=== PATIENT | female | born 1995 | race African-American/Black ===

== ENCOUNTER 2021-09-10 20:18 | Inpatient (IN) | payer MEDICARE, OTHER ==
[2021-09-10] MEDS ORDERED: hydrALAZINE 20 MG/ML VIAL SLOW IVP PRN ×3 (20:48→23:03)
[2021-09-10] MEDS ORDERED: Ibuprofen 800 MG TAB PO PRN (20:59)
[2021-09-10] MEDS ORDERED: Ondansetron PF 4 MG/2 ML Vial IVP PRN (20:59)
[2021-09-10] MEDS ORDERED: HYDROcodone/Acetaminophen 5/325 mg Tablet PO PRN (20:59)
[2021-09-10] MEDS ORDERED: Butorphanol Tartrate 1 MG/ML VIAL SLOW IVP PRN (20:59)
[2021-09-10] MEDS ORDERED: Promethazine HCl 25 MG/ML VIAL IM PRN (20:59)
[2021-09-10] MEDS ORDERED: Lidocaine 1% (PF) 30 ML VIAL SC PRN (20:59)
[2021-09-10] MEDS ORDERED: Lactated Ringer's 1,000 ML IV SCH ×2 (21:00)
[2021-09-10] MEDS ORDERED: NS w/ Oxytocin 30 units 500 ML IV SCH (21:00)
[2021-09-10 21:21] LABS: Fetal Membranes Rupture No Membranes Rupture (No Rupture)
[2021-09-10 22:43] VITALS: BMI 34.0
[2021-09-10] MEDS ORDERED: Calcium Gluc 4.6 MEQ/10 ML (100 MG/ML) SLOW IVP PRN (23:16)
[2021-09-10] MEDS ORDERED: Magnesium Sulfate 20 gm/500 ml 20 GM/500 ML BAG ONE (23:24)
[2021-09-10] MEDS ORDERED: Magnesium Sulfate 20 gm/500 ml 20 GM/500 ML BAG IVPB SCH (23:30)
[2021-09-10] MEDS ORDERED: Magnesium Sulfate 20 GM/WATER 500 ML BAG IVPB SCH (23:30)
[2021-09-10 23:31] LABS: Hemoglobin 9.7 g/dL (12.0-15.5); Mean Corpuscular HGB CONC 31.4 g/dL (32.0-36.0); Mean Corpuscular Volume 63.6 fl (81.6-98.3); Platelet Count 281 10x3/uL (150-450); RBC Distribution Width 14.8 % (11.5-14.5); Red Blood Cell (RBC) Count 4.86 10x6/uL (3.90-5.03); White Blood Cell (WBC) Count 7.5 10x3/uL (3.5-10.5)
[2021-09-10] MEDS: NS w/ Oxytocin 30 units 500 ML IV SCH (23:34)
[2021-09-10 23:53] LABS: Hep B Surf Ag Non-Reactive S/CO (NonReactive)
[2021-09-10 23:54] LABS: Syphilis Antibody Nonreactive (Nonreactive); Syphilis Antibody Index 0.08 S/CO (<1.00 Non-Reactive)
[2021-09-10 23:56] LABS: HBSAg Index 0.18 S/CO (0-0.99)
[2021-09-10] MEDS ORDERED: Fentanyl 2 mcg/Bup 0.1% Cadd 100 ML ONE (23:56)
[2021-09-11] MEDS ORDERED: Lactated Ringer's 500 ML IV PRN ×2 (00:02)
[2021-09-11] MEDS ORDERED: Promethazine HCl 25 MG/ML VIAL IM PRN ×2 (00:02→07:30)
[2021-09-11] MEDS ORDERED: diphenhydrAMINE 50 MG/ML VIAL IVP PRN (00:02)
[2021-09-11] MEDS ORDERED: Naloxone HCl 0.4 mg/ml Vial IVP PRN ×2 (00:02)
[2021-09-11] MEDS ORDERED: Hydrocerin (Eucerin) Cream 120 gm Jar TOP PRN (00:02)
[2021-09-11] MEDS ORDERED: Ondansetron PF 4 MG/2 ML Vial IVP PRN ×2 (00:02→07:30)
[2021-09-11] MEDS ORDERED: Acetaminophen 325 MG TAB PO PRN (00:02)
[2021-09-11] MEDS ORDERED: ePHEDrine Sulfate 50 MG/10 ML VIAL SLOW IVP PRN (00:02)
[2021-09-11] MEDS ORDERED: Communication Order-Pharmacy FS SCH (00:15)
[2021-09-11] MEDS ORDERED: Fentanyl 2 mcg/Bupivacaine 0.1% Cassette 100 ML EPIDURAL SCH (00:15)
[2021-09-11 02:25] LABS: SARS-CoV-2 NAA Rapid Test Not Detected (NotDetected)
[2021-09-11] MEDS ORDERED: Misoprostol 200 MCG TAB ONE (06:02)
[2021-09-11] MEDS ORDERED: Preparation H Ointment 28 GM TUBE PR PRN (07:30)
[2021-09-11] MEDS ORDERED: Milk Of Magnesia 30 ML UDCUP PO PRN (07:30)
[2021-09-11] MEDS ORDERED: Zolpidem Tartrate 5 MG TAB PO PRN (07:30)
[2021-09-11] MEDS ORDERED: HYDROcodone/Acetaminophen 5/325 mg Tablet PO PRN ×2 (07:30)
[2021-09-11] MEDS ORDERED: Bisacodyl 10 MG SUPP PR PRN (07:30)
[2021-09-11] MEDS ORDERED: Calcium Gluconate 4.6 MEQ in Sodium Chloride 0.9% 100 ML IVPB PRN (07:30)
[2021-09-11] MEDS ORDERED: diphenhydrAMINE 25 MG CAP PO PRN (07:30)
[2021-09-11] MEDS ORDERED: Boostrix 0.5 ML (Tdap) VIAL IM ONE (07:30)
[2021-09-11] MEDS ORDERED: Benzocaine-Menthol 82.5 ML CAN TOP PRN (07:30)
[2021-09-11] MEDS ORDERED: hydrALAZINE 20 MG/ML VIAL SLOW IVP PRN (07:30)
[2021-09-11] MEDS ORDERED: Lanolin Ointment 7 GM TUBE TOP PRN (07:30)
[2021-09-11] MEDS: Magnesium Sulfate 20 gm/500 ml 20 GM/500 ML BAG IVPB SCH (08:14)
[2021-09-11] MEDS ORDERED: NS w/ Oxytocin 30 units 500 ML ONE (08:14)
[2021-09-11] MEDS: NS w/ Oxytocin 30 units 500 ML IV SCH (08:14)
[2021-09-11 08:26] LABS: ALT (SGPT) 8 U/L (8-55); AST (SGOT) 20 U/L (5-34); Albumin 3.6 g/dL (3.5-5.0); Alkaline Phosphatase 159 U/L (40-110); Anion Gap 13 mmol/L (10-20); BUN (Urea Nitrogen) 7 mg/dL (7.0-18.7); Bilirubin, Total 0.4 mg/dL (0.2-1.2); Calc. Creatinine Clearance 174 mL/min (70-130); Carbon Dioxide 20 mmol/L (22-29); Chloride 106 mmol/L (98-107); Globulin 3.4 g/dL (2.4-3.5); Glucose 99 mg/dL (70-105); Potassium 3.9 mmol/L (3.5-5.1); Sodium 135 mmol/L (136-145)
[2021-09-11] MEDS: Ibuprofen 800 MG TAB PO SCH ×2 (15:00→22:52)
[2021-09-11] MEDS: Prenatal Vitamin 1 TAB PO SCH (19:10)
[2021-09-11] MEDS: Ferrous Sulfate 325 MG TAB PO SCH ×2 (19:10→20:22)
[2021-09-11] MEDS: Docusate 100 MG CAP PO SCH ×2 (19:10→21:08)
[2021-09-12] MEDS: Magnesium Sulfate 20 gm/500 ml 20 GM/500 ML BAG IVPB SCH (03:30)
[2021-09-12 05:40] LABS: Hemoglobin 8.5 g/dL (12.0-15.5)
[2021-09-12] MEDS: Ibuprofen 800 MG TAB PO SCH ×3 (05:59→21:30)
[2021-09-12] MEDS: Docusate 100 MG CAP PO SCH ×2 (08:32→21:30)
[2021-09-12] MEDS: Ferrous Sulfate 325 MG TAB PO SCH ×2 (08:32→18:24)
[2021-09-12] MEDS: Prenatal Vitamin 1 TAB PO SCH (08:32)
[2021-09-13] MEDS: Ibuprofen 800 MG TAB PO SCH (05:26)
[2021-09-13 08:07] VITALS: BP 134/85; TEMP 98.2
[2021-09-13] MEDS: Docusate 100 MG CAP PO SCH (08:07)
[2021-09-13] MEDS: Ferrous Sulfate 325 MG TAB PO SCH (08:07)
[2021-09-13] MEDS: Prenatal Vitamin 1 TAB PO SCH (08:08)
== END 2021-09-13 11:35 | disposition home or self-care (01) | DRG 807 ==
LOC: CSHLD/OP 20:18 → CSHLD 21:17 → CSHPP 09-12 08:15
PROVIDERS: ADMIT Student in an Organized Health Care Education/Training Program; ATTEND Student in an Organized Health Care Education/Training Program
PROC: 10E0XZZ Delivery of Products of Conception, External Approach (ICD-10-PCS; principal; 2021-09-11)
PROC: 3E0334Z Introduction of Serum, Toxoid and Vaccine into Peripheral Vein, Percutaneous Approach (ICD-10-PCS; 2021-09-11)
PROC: 3E033VJ Introduction of Other Hormone into Peripheral Vein, Percutaneous Approach (ICD-10-PCS; 2021-09-11)
DX: O14.14 Severe pre-eclampsia complicating childbirth (principal); Z37.0 Single live birth; Z20.822 Contact with and (suspected) exposure to COVID-19; Z3A.37 37 weeks gestation of pregnancy; Z67.11 Type A blood, Rh negative; Z90.49 Acquired absence of other specified parts of digestive tract; O99.02 Anemia complicating childbirth; D50.9 Iron deficiency anemia, unspecified
CPT/HCPCS: 36415; 51702; 80053; 84112; 85014; 85018; 85027; 85461; 86780; 86850; 86870; 86900; 86901; 87340; 90384; 96372; 99285; J0360; J2590; J3475; J7120; U0002